=== PATIENT | female | born 1990 | race Caucasian/White ===

== ENCOUNTER 2016-08-27 20:39 | Emergency (ER) | payer OTHER | END 2016-08-28 03:30 | disposition home or self-care (01) | LOC: ER1 20:39 | DX: G43.909 Migraine, unspecified, not intractable, without status migrainosus (principal); F41.9 Anxiety disorder, unspecified | CPT/HCPCS: 96374; 96375; 99283; J1200; J1885; J2765 ==

== ENCOUNTER → 2020-06-15 | Outpatient (CLI) | payer OTHER ==
[~2020-06-15] MED LIST: ANTIVERT 25MG T25 MG PO; AUGMENTIN 875-1 EACH PO; CIPRO500 MG PO; DELSYM30 MG/5 ML PO; IBUPROFEN600 MG PO; LODINE CAP 300300 MG PO; MACROBID 100 M100 MG PO; NORFLEX 100 MG100 MG PO; OMNICEF 300 MG300 MG PO; Voltaren Gel 1% TOP; ZOFRAN ODT 4 MG4 MG PO
== END ==
LOC: HEART 5 03-14 08:00
DX: R07.9 Chest pain, unspecified (principal)
CPT/HCPCS: 93017; 93306

== ENCOUNTER 2020-10-24 15:34 | Observation (INO) | payer OTHER ==
[~2020-10-24 15:34] MED LIST changes: -LODINE CAP 300300 MG PO; -OMNICEF 300 MG300 MG PO; -ZOFRAN ODT 4 MG4 MG PO
[2020-10-24 16:47] LABS: HEMOGLOBIN 10.8 gm/dl (12.3-15.3); RED BLOOD COUNT 3.88 M/UL (4.00-5.10); WHITE BLOOD COUNT 9.8 K/UL (4.5-11.0)
== END 2020-10-24 22:03 | disposition short-term general hospital (02) ==
LOC: GENOP 15:34 → OB 16:07
PROVIDERS: ADMIT Obstetrics & Gynecology
DX: O47.03 False labor before 37 completed weeks of gestation, third trimester (principal); O42.913 Preterm premature rupture of membranes, unspecified as to length of time between rupture and onset of labor, third trimester; O99.343 Other mental disorders complicating pregnancy, third trimester; F31.9 Bipolar disorder, unspecified; F41.9 Anxiety disorder, unspecified; Z87.440 Personal history of urinary (tract) infections; Z79.899 Other long term (current) drug therapy; Z3A.33 33 weeks gestation of pregnancy; Z20.822 Contact with and (suspected) exposure to COVID-19
CPT/HCPCS: 36415; 51702; 81001; 83518; 85025; 96360; 96361; 96367; 96372; G0378; J0702; J3105; J3475; J7120; U0002

== ENCOUNTER 2021-01-04 00:10 | Emergency (ER) | payer OTHER ==
[2021-01-04 01:47] LABS: BORDETELLA PARAPERTUSSIS Not Detected (Not Detectd); BORDETELLA PERTUSSIS Not Detected (Not Detectd); CHLAMYDIA PNEUMONIAE Not Detected (Not Detectd); CORONAVIRUS HKU1 Not Detected (Not Detectd); CORONAVIRUS NL63 Not Detected (Not Detectd); CORONAVIRUS OC43 Not Detected (Not Detectd); CORONOAVIRUS 229E Not Detected (Not Detectd); HUMAN METAPNEUMOVIRUS Not Detected (Not Detectd); HUMAN RHINOVIRUS/ENTEROVIRUS Not Detected (Not Detectd); INFLUENZA A Not Detected (Not Detectd); INFLUENZA B Not Detected (Not Detectd); MYCOPLASMA PNEUMONIAE Not Detected (Not Detectd); PARAINFLUENZA VIRUS 1 Not Detected (Not Detectd); PARAINFLUENZA VIRUS 2 Not Detected (Not Detectd); PARAINFLUENZA VIRUS 3 Not Detected (Not Detectd); PARAINFLUENZA VIRUS 4 Not Detected (Not Detectd); RESPIRATORY SYNCYTIAL VIRUS Not Detected (Not Detectd)
[2021-01-04 01:48] LABS: HEMOGLOBIN 12.1 gm/dl (12.3-15.3); RED BLOOD COUNT 4.33 M/UL (4.00-5.10); WHITE BLOOD COUNT 16.3 K/UL (4.5-11.0)
[2021-01-04 02:11] LABS: BUN/CREATININE RATIO 14 (0-10)
[2021-01-04 02:56] LABS: SARS-CoV-2 NOT DETECTED (Not Detectd)
[2021-01-04] MEDS ORDERED: ZOFRAN ODT 4 MG4 MG PO (04:10)
[2021-01-04] MEDS ORDERED: OMNICEF 300 MG300 MG PO (04:10)
[2021-01-04] MEDS ORDERED: LODINE CAP 300300 MG PO (04:10)
== END 2021-01-04 03:30 | disposition home or self-care (01) ==
LOC: ER1 00:10
PROVIDERS: Physician Assistant
DX: J02.9 Acute pharyngitis, unspecified (principal); Z20.822 Contact with and (suspected) exposure to COVID-19
CPT/HCPCS: 71045; 80053; 81001; 84703; 85025; 87081; 87086; 87633; 87880; 99283

== ENCOUNTER 2021-02-18 11:44 | Emergency (ER) | payer OTHER ==
[~2021-02-18 11:44] MED LIST changes: +LODINE CAP 300300 MG PO; +OMNICEF 300 MG300 MG PO; +ZOFRAN ODT 4 MG4 MG PO
== END 2021-02-18 13:02 | disposition home or self-care (01) ==
LOC: ER1 11:44
DX: U07.1 COVID-19 (principal)
CPT/HCPCS: 87081; 87880; 99283; U0003

== ENCOUNTER → 2022-02-13 | Outpatient (CLI) | payer OTHER ==
[~2022-02-13] MED LIST changes: +FLUTICASONE SPRAY; +HAIR, SKIN & N1 EACH PO; +KETOTIFEN FUMARA5 ML EYEBOTH; +LATUDA60 MG PO; +METHYLFOLATE 7.5 MG PO; +PROPRANOLOL HCL20 MG PO; +VOLTAREN EC 7575 MG PO; +VOLTAREN GEL 1% TOP; +WELLBUTRIN XL300 MG PO
[2022-02-13 11:08] LABS: HEMOGLOBIN 14.7 gm/dl (12.3-15.3); RED BLOOD COUNT 4.73 M/UL (4.00-5.10); WHITE BLOOD COUNT 8.7 K/UL (4.5-11.0)
== END ==
LOC: OPSV2 09:55
PROVIDERS: Obstetrics & Gynecology
DX: Z01.812 Encounter for preprocedural laboratory examination (principal); N81.9 Female genital prolapse, unspecified
CPT/HCPCS: 81001; 85025

== ENCOUNTER → 2022-02-25 | Day surgery (SDC) | payer OTHER ==
[~2022-02-25] MED LIST changes: +DOCUSATE SODIU250 MG PO; +HYDROCODONE-AC1 EACH PO
== END | disposition home or self-care (01) ==
LOC: OR 05:35
DX: N81.2 Incomplete uterovaginal prolapse (principal); N72 Inflammatory disease of cervix uteri; N87.9 Dysplasia of cervix uteri, unspecified; F41.9 Anxiety disorder, unspecified; F31.9 Bipolar disorder, unspecified; F43.10 Post-traumatic stress disorder, unspecified; K59.00 Constipation, unspecified
CPT/HCPCS: 84703; C1769; J0690; J1100; J1170; J2001; J2250; J2405; J2550; J2704; J3010